=== PATIENT | female | born 1940 | race Caucasian/White ===

== ENCOUNTER 2016-11-07 06:07 | Day surgery (SDC) | payer MEDICARE, OTHER ==
[2016-11-07] MEDS ORDERED: LACTATED RINGERS 1,000 ML IV ONE (07:03)
[2016-11-07] MEDS ORDERED: fentaNYL 100 MCG/2 ML VIAL IVP ONE (07:04)
[2016-11-07] MEDS ORDERED: MIDAZOLAM 2 MG/2 ML VIAL IVP ONE (07:04)
[2016-11-07 09:00] VITALS: BP 130/67
== END 2016-11-07 06:08 | disposition home or self-care (01) ==
LOC: SDS 06:07
PROVIDERS: ATTEND Surgery
PROC: 0DJD8ZZ Inspection of Lower Intestinal Tract, Via Natural or Artificial Opening Endoscopic (ICD-10-PCS; principal; 2016-11-07 07:30)
DX: Z12.11 Encounter for screening for malignant neoplasm of colon (principal); R19.5 Other fecal abnormalities; I10 Essential (primary) hypertension; K57.30 Diverticulosis of large intestine without perforation or abscess without bleeding; E78.00 Pure hypercholesterolemia, unspecified; Z85.828 Personal history of other malignant neoplasm of skin; Z80.42 Family history of malignant neoplasm of prostate; Z80.1 Family history of malignant neoplasm of trachea, bronchus and lung; Z88.0 Allergy status to penicillin; Z88.5 Allergy status to narcotic agent
CPT/HCPCS: G0121; J7120

== ENCOUNTER 2017-01-04 09:29 | Day surgery (SDC) | payer MEDICARE, OTHER ==
[2017-01-04] MEDS ORDERED: LACTATED RINGERS 1,000 ML IV ONE ×2 (10:15→13:03)
[2017-01-04] MEDS ORDERED: MIDAZOLAM 2 MG/2 ML VIAL IVP ONE (12:00)
[2017-01-04] MEDS ORDERED: fentaNYL 100 MCG/2 ML VIAL IVP ONE (12:00)
--- NOTE | 2017-01-04 12:05 | HISTORY & PHYSICAL EXAMINATION ---
HPI - History of Present Illness HPI Comment/Other: Patient is here for colonoscopy for positive FIT and recently failed colonoscopy secondary to poor prep. Current Meds: METOPROLOL SUCCINATE ER 50 MG [id number] (METOPROLOL SUCCINATE) Take one tablet by mouth daily LEVOTHYROXINE SODIUM 50 MCG TABS (LEVOTHYROXINE SODIUM) Take one tablet by mouth daily SIMVASTATIN 20 MG TABS (SIMVASTATIN) Take one tablet by mouth at bedtime Allergies: PENICILLIN V POTASSIUM (Critical) CODEINE (Critical) Past Medical History: Reviewed history from 10/18/2016 and no changes required: Hypertension high cholesterol Skin cancer Social History: Reviewed history and no changes required: Problems were reviewed with the patient during this visit. Medications were reviewed with the patient during this visit. Allergies were reviewed with the patient during this visit. Allergies: PENICILLIN V POTASSIUM (Critical) CODEINE (Critical) Physical Exam General: well developed, well nourished, in no acute distress Lungs: clear bilaterally to A & P Heart: regular rate and rhythm, S1, S2 without murmurs, rubs, gallops, or clicks Abdomen: bowel sounds positive; abdomen soft and non-tender without masses, organomegaly, or hernias noted Pulses: pulses normal in all 4 extremities Extremities: no clubbing, cyanosis, edema, or deformity noted with normal full range of motion of all joints Cervical Nodes: no significant adenopathy Psych: alert and cooperative; normal mood and affect; normal attention span and concentration Impression & Recommendations: Problem # 1: + FIT Will proceed with colonoscopy. PMH/PSH - Past Medical History Cardiovascular: positive: Hypertension, High cholesterol Respiratory: positive: Other Endocrine/Autoimmune: positive: None GI: positive: None, Other : positive: Incontinence, Nocturia HEENT: positive: Chronic vision loss Psych: positive: None Musculoskeletal: positive: Osteoarthritis Derm: positive: None MRSA Hx?: No - Past Surgical History General: positive: Colonoscopy Ortho: positive: Knee replacement /UROGYNECOLOGY PHYSICIAN: positive: Dilation and currettage Meds/Allgy - Home Medications Home Medications: Ambulatory Orders Medication Instructions Recorded Confirmed Aspirin [Adult Low Dose Aspirin EC] 81 mg PO DAILY 11/06/16 01/03/17 Levothyroxine [Synthroid] 50 mcg PO QDAC 11/06/16 01/03/17 Metoprolol Succinate 50 mg PO DAILY 05/22/17 07/19/17 Saliva Stimulant Comb. No.7 42 gm MM ONCE PRN 11/06/16 01/03/17 [Biotene Oralbalance] Simvastatin 20 mg PO QPM 11/06/16 01/03/17 - Allergies Allergies/Adverse Reactions: Allergies Allergy/AdvReac Type Severity Reaction Status Date / Time codeine Allergy Unknown Verified 01/03/17 14:03 Penicillins Allergy Unknown Verified 01/03/17 14:03 Exam - Vital Signs Vital Signs: Vital Signs x48h Temp Pulse Resp BP Pulse Ox 01/04/17 09:50 37 C 70 15 151/81 H 97
[2017-01-04 13:27] VITALS: BP 120/57
== END 2017-01-04 09:30 | disposition home or self-care (01) ==
LOC: SDS 09:29
PROVIDERS: ATTEND Surgery
PROC: 0DBM8ZX Excision of Descending Colon, Via Natural or Artificial Opening Endoscopic, Diagnostic (ICD-10-PCS; 2017-01-04)
PROC: 0DBK8ZX Excision of Ascending Colon, Via Natural or Artificial Opening Endoscopic, Diagnostic (ICD-10-PCS; principal; 2017-01-04 11:15)
DX: R19.5 Other fecal abnormalities (principal); D12.2 Benign neoplasm of ascending colon; D12.4 Benign neoplasm of descending colon; K64.4 Residual hemorrhoidal skin tags; Q43.8 Other specified congenital malformations of intestine; K57.30 Diverticulosis of large intestine without perforation or abscess without bleeding; K64.8 Other hemorrhoids; I10 Essential (primary) hypertension; E78.00 Pure hypercholesterolemia, unspecified; Z88.0 Allergy status to penicillin; Z88.5 Allergy status to narcotic agent; Z85.828 Personal history of other malignant neoplasm of skin; Z79.82 Long term (current) use of aspirin; Z96.659 Presence of unspecified artificial knee joint
CPT/HCPCS: 45380; J7120; 88305